=== PATIENT | female | born 1985 | race African-American/Black ===

== ENCOUNTER 2017-12-13 20:21 | Emergency (ER) | payer MEDICAID ==
[~2017-12-13] VITALS: Ht 160 cm; Wt 46.3 kg
[~2017-12-13 20:21] MED LIST: AMOXICILLIN 50500 MG PO; CIPRO500 MG PO; FLAGYL500 MG; FLEXERIL PO; GENTAMICIN SU3 MG/ML OPHTHALMIC; HYDROCHLOROTH12.5 M1 PO; HYDROCODONE-AP1 EAC6 PO; MACROBID; METHYLDOPA; NORCO 5-325 TA1 EAC1 PO; NORCO 5-325 TA1 EACH PO; NORVASC 5 MG TAB5 MG PO; No home meds; PENICILLIN V P500 MG PO; POLYMYXIN B/TMP10 ML OPHTHALMIC; PRENATAL; REGLAN 10 MG TA10 MG; VITAMIN B-6200 M1
[2017-12-13 21:10] LABS: URINE BILIRUBIN NEGATIVE (Negative); URINE BLOOD TRACE (Negative); URINE CLARITY CLEAR; URINE COLOR YELLOW; URINE GLUCOSE-RANDOM NEGATIVE (Negative); URINE KETONES TRACE (Negative); URINE LEUKOCYTES-REFLEX NEGATIVE (Negative); URINE NITRITE-REFLEX NEGATIVE (Negative); URINE PROTEIN 1+ (Negative); URINE SPECIFIC GRAVITY 1.015 (1.005-1.030)
[2017-12-13] MEDS ORDERED: PROMETHAZINE V473 ML PO (21:15)
[2017-12-13] MEDS ORDERED: TESSALON PERLE100 MG PO (21:15)
[2017-12-13 21:21] VITALS: BP 148/112
== END 2017-12-13 21:23 | disposition home or self-care (01) ==
LOC: M.ERS 20:21
PROVIDERS: Physician Assistant
DX: J06.9 Acute upper respiratory infection, unspecified (principal); F17.210 Nicotine dependence, cigarettes, uncomplicated

== ENCOUNTER 2018-03-05 10:30 | Emergency (ER) | payer MEDICAID ==
[~2018-03-05] VITALS: Ht 160 cm; Wt 47.2 kg
[~2018-03-05 10:30] MED LIST changes: +PROMETHAZINE V473 ML PO; +TESSALON PERLE100 MG PO
[2018-03-05] MEDS ORDERED: LABETALOL 100100 MG PO (10:41)
[2018-03-05 10:54] LABS: URINE BILIRUBIN NEGATIVE (Negative); URINE BLOOD TRACE (Negative); URINE CLARITY CLEAR; URINE COLOR YELLOW; URINE GLUCOSE-RANDOM NEGATIVE (Negative); URINE KETONES NEGATIVE (Negative); URINE LEUKOCYTES-REFLEX TRACE (Negative); URINE PROTEIN TRACE (Negative); URINE UROBILINOGEN 0.2 E.U./dl (0.2-1.0)
[2018-03-05 10:57] LABS: URINE NITRITE-REFLEX POSITIVE (Negative)
[2018-03-05 11:13] LABS: CASTS None Seen /LPF (None Seen); CRYSTALS None Seen /LPF (None Seen); SQUAMOUS >10 Many /LPF (0-3)
[2018-03-05 11:14] LABS: BACTERIA-REFLEX 1-9 Few /HPF (None Seen); MUCUS 4-6 Moderate strn/LPF (None Seen); URINE RBC None Seen /HPF (0-2)
[2018-03-05 11:27] LABS: ABSOLUTE EOSINOPHILS 0.1 thou/uL (0.0-0.7); ABSOLUTE LYMPHOCYTES 1.2 thou/uL (0.8-5.3); ABSOLUTE MONOCYTES 0.4 thou/uL (0.0-1.2); ABSOLUTE NEUTROPHILS 3.6 thou/uL (1.6-8.1); BASOPHILS 0.8 %; EOSINOPHILS 2.2 %; HEMATOCRIT 29.8 % (37.0-47.0); HEMOGLOBIN 9.7 gm/dL (12.0-15.0); LYMPHOCYTES 22.7 %; MCHC 32.5 g/dL (28.0-37.0); MCV 79.9 fL (80.0-100.0); MONOCYTES 8.3 %; NUCLEATED RBCS 0 /100WBC; PLATELET COUNT* 207 thou/uL (150-400); RBC 3.73 mil/uL (4.20-5.00); RDW-CV 20.6 % (10.5-14.5); WBC 5.4 thou/uL (4.0-11.0)
[2018-03-05 11:40] LABS: CALCIUM 8.4 mg/dL (8.5-10.1); CREATININE 0.6 mg/dL (0.6-1.3); POTASSIUM 3.4 mmol/L (3.5-5.1)
[2018-03-05 11:44] LABS: ALBUMIN 3.2 g/dL (3.4-5.0); TOTAL BILIRUBIN 0.5 mg/dL (<0.1-1.0); TOTAL PROTEIN 7.4 g/dL (6.4-8.2)
[2018-03-05 12:02] LABS: ANISOCYTOSIS 2+; MICROCYTES 1+; PLATELET ESTIMATE ADEQUATE
[2018-03-05 12:03] LABS: HYPOCHROMASIA 2+; TEARDROPS 1+
[2018-03-05 12:14] VITALS: BP 170/121
== END 2018-03-05 12:14 | disposition home or self-care (01) ==
LOC: M.ERS 10:30
PROVIDERS: Family Medicine
DX: O16.1 Unspecified maternal hypertension, first trimester (principal); Z3A.08 8 weeks gestation of pregnancy

== ENCOUNTER 2018-07-02 21:51 | Emergency (ER) | payer OTHER, MEDICAID ==
[~2018-07-02] VITALS: Ht 160 cm; Wt 53.1 kg
[~2018-07-02 21:51] MED LIST changes: +LABETALOL 100100 MG PO
[2018-07-02] MEDS ORDERED: VITAFOL-OB+DHA1 EACH PO (22:01)
[2018-07-02 22:24] LABS: URINE BILIRUBIN NEGATIVE (Negative); URINE BLOOD NEGATIVE (Negative); URINE CLARITY CLEAR; URINE COLOR YELLOW; URINE GLUCOSE-RANDOM NEGATIVE (Negative); URINE KETONES NEGATIVE (Negative); URINE LEUKOCYTES 1+ (Negative); URINE NITRITE POSITIVE (Negative); URINE PROTEIN TRACE (Negative); URINE SPECIFIC GRAVITY 1.025 (1.005-1.030)
[2018-07-02 22:29] LABS: BACTERIA >30 Many /HPF (None Seen); CASTS None Seen /LPF (None Seen); CRYSTALS None Seen /LPF (None Seen); SQUAMOUS 4-10 Moderate /LPF (0-3); URINE RBC 3-10 Few /HPF (0-2); URINE WBC >25 Many /HPF (0-5)
[2018-07-02 22:37] LABS: ABSOLUTE BASOPHILS 0.1 thou/uL (0.0-0.2); ABSOLUTE EOSINOPHILS 0.2 thou/uL (0.0-0.7); ABSOLUTE LYMPHOCYTES 1.3 thou/uL (0.8-5.3); ABSOLUTE MONOCYTES 0.6 thou/uL (0.0-1.2); ABSOLUTE NEUTROPHILS 3.7 thou/uL (1.6-8.1); BASOPHILS 1.1 %; EOSINOPHILS 2.9 %; HEMATOCRIT 27.8 % (37.0-47.0); HEMOGLOBIN 8.9 gm/dL (12.0-15.0); LYMPHOCYTES 22.4 %; MCH 26.4 pg (26.0-34.0); MCHC 32.1 g/dL (28.0-37.0); MCV 82.1 fL (80.0-100.0); MPV 9.1 fl. (7.2-11.1); NUCLEATED RBCS 0 /100WBC; PLATELET COUNT* 243 thou/uL (150-400); POLYS 62.6 %; RBC 3.39 mil/uL (4.20-5.00); RDW-CV 13.7 % (10.5-14.5); WBC 5.9 thou/uL (4.0-11.0)
[2018-07-02 22:41] LABS: CALCIUM 8.2 mg/dL (8.5-10.1); CREATININE 0.6 mg/dL (0.6-1.3); POTASSIUM 3.4 mmol/L (3.5-5.1)
[2018-07-02 22:44] LABS: APTT 28.1 Seconds (25.0-31.3); PROTIME 9.9 Seconds (9.20-11.50)
[2018-07-02 22:46] LABS: ALBUMIN 2.6 g/dL (3.4-5.0); TOTAL BILIRUBIN 0.6 mg/dL (<0.1-1.0); TOTAL PROTEIN 7.2 g/dL (6.4-8.2); URIC ACID* 3.6 mg/dL (2.6-7.2)
[2018-07-03 00:19] VITALS: BP 141/87
== END 2018-07-03 01:44 | disposition left against medical advice (07) ==
LOC: M.ERS 21:51
PROVIDERS: Nurse Practitioner Family
DX: O11.2 Pre-existing hypertension with pre-eclampsia, second trimester (principal); O23.42 Unspecified infection of urinary tract in pregnancy, second trimester; O99.012 Anemia complicating pregnancy, second trimester; Z3A.24 24 weeks gestation of pregnancy; F17.210 Nicotine dependence, cigarettes, uncomplicated

== ENCOUNTER 2021-08-05 12:45 | Emergency (ER) | payer MEDICAID ==
[~2021-08-05] VITALS: Ht 160 cm; Wt 54.4 kg
[~2021-08-05 12:45] MED LIST changes: +VITAFOL-OB+DHA1 EACH PO
[2021-08-05] MEDS ORDERED: LABETALOL HCL100 MG PO (13:35)
[2021-08-05 13:47] LABS: ABSOLUTE BASOPHILS 0.1 thou/uL (0.0-0.2); ABSOLUTE EOSINOPHILS 0.1 thou/uL (0.0-0.7); ABSOLUTE LYMPHOCYTES 1.5 thou/uL (0.8-5.3); ABSOLUTE MONOCYTES 0.4 thou/uL (0.0-1.2); ABSOLUTE NEUTROPHILS 1.7 thou/uL (1.6-8.1); BASOPHILS 2.1 %; EOSINOPHILS 3.6 %; HEMOGLOBIN 10.6 gm/dL (12.0-15.0); LYMPHOCYTES 39.6 %; MCH 23.7 pg (26.0-34.0); MCHC 31.2 g/dL (28.0-37.0); MONOCYTES 10.2 %; NUCLEATED RBCS 0 /100WBC; PLATELET COUNT* 252 thou/uL (150-400); POLYS 44.5 %; RBC 4.47 mil/uL (4.20-5.00); RDW-CV 16.4 % (10.5-14.5); WBC 3.8 thou/uL (4.0-11.0)
[2021-08-05 13:56] LABS: CALCIUM 8.9 mg/dL (8.5-10.1); CREATININE 0.9 mg/dL (0.6-1.3); POTASSIUM 3.4 mmol/L (3.5-5.1)
[2021-08-05 14:01] LABS: TOTAL BILIRUBIN 0.7 mg/dL (<0.1-1.0); TOTAL PROTEIN 8.6 g/dL (6.4-8.2)
[2021-08-05 16:34] VITALS: BP 170/118
--- NOTE | 2021-08-06 09:04 | EKG ---
[place] [address] ELECTROCARDIOGRAM REPORT Name: AIDE MOON Room: [facility]#: [id number] Admission: 08/05/21 Attend Phys: Discharge: 08/05/21 Date of : 81 Date of Service: 08/05/21 1324 Report #: [id number] THIS REPORT FOR: //name// [facility] ED Test Date: 2021-08-05 Test Time: 13:24:32 Pat Name: AIDE MARTINEZ Department: Room: Gender: F Senior Quality Engineer: [place] : 1985 Requested By: Nirali Foster Order Number: [id number] MD: Shane Goodrich Measurements Intervals [place] Rate: 83 P: 48 DC: 137 QRS: 13 QRSD: 78 T: 58 QT: 370 QTc: 435 Interpretive Statements Sinus rhythm Probable LVH with secondary repol abnrm Compared to ECG 11/11/2010 05:36:49 Sinus tachycardia no longer present Electronically Signed On 08-06-2021 9:03:45 CDT by Shane Goodrich [email or web address] <ELECTRONICALLY SIGNED> By: Shane Goodrich MD, FACC 08/06/21 0903 1324 1324 Shane Goodrich MD, [facility] /EPI
== END 2021-08-05 16:34 | disposition home or self-care (01) ==
LOC: M.ERS 12:45
PROVIDERS: Nurse Practitioner Family
DX: I10 Essential (primary) hypertension (principal); F17.210 Nicotine dependence, cigarettes, uncomplicated